=== PATIENT | male | born 1975 | race Caucasian/White ===

== ENCOUNTER 2018-10-17 09:53 | Emergency (ER) | payer SELFPAY ==
[~2018-10-17] VITALS: Ht 190.5 cm; Wt 88.5 kg
[~2018-10-17 09:53] MED LIST: HYDROCODON-ACE1 EA11 PO; NAPROXEN500 MG PO
== END 2018-10-17 10:18 | disposition home or self-care (01) ==
LOC: ED 09:53
DX: M79.602 Pain in left arm (principal)